=== PATIENT | female | born 2005 | race African-American/Black ===

== ENCOUNTER 2025-05-21 10:44 | Emergency (ER) | payer MEDICAID ==
[~2025-05-21] VITALS: Ht 172.7 cm; Wt 121.0 kg
[2025-05-21 10:48] VITALS: O2SAT 100
[2025-05-21 10:55] VITALS: BP 144/78; PULSE 85; RESP 16; TEMP 37.1; O2SAT 100
[2025-05-21 12:28] VITALS: TEMP 98.7
[2025-05-21] MEDS: ACETAMINOPHEN 325MG TABLET PO ONE (12:28)
[2025-05-21 13:19] LABS: HCG SCREEN NEGATIVE
== END 2025-05-21 13:55 | disposition home or self-care (01) ==
LOC: ER 10:45
DX: D16.9 Benign neoplasm of bone and articular cartilage, unspecified (principal); Z90.89 Acquired absence of other organs
CPT/HCPCS: 73562; 84703; 99284

== ENCOUNTER 2025-09-20 18:22 | Emergency (ER) | payer MEDICAID ==
[~2025-09-20] VITALS: Ht 172.7 cm; Wt 105.0 kg
[2025-09-20 18:37] VITALS: O2SAT 100
[2025-09-20 18:56] LABS: CLARITY URINE CLEAR (CLEAR); COLOR URINE YELLOW (YELLOW); GLUCOSE URINE NEGATIVE (NEGATIVE); KETONES URINE NEGATIVE (NEGATIVE); LEUKOCYTE ESTERASE URINE NEGATIVE (NEGATIVE); NITRITE URINE NEGATIVE (NEGATIVE); OCCULT BLOOD URINE NEGATIVE (NEGATIVE); PH URINE 6.0 (4.5-8.0); PROTEIN URINE NEGATIVE (NEGATIVE); SPECIFIC GRAVITY URINE 1.027 (1.005-1.030); UROBILINOGEN URINE 0.2 E.U./dL (0.2-1.0)
[2025-09-20 20:08] LABS: BASOPHILS % 0.6 % (0.0-2.0); EOSINOPHILS % 0.5 % (0.0-5.0); HEMATOCRIT. 37.5 % (36.0-48.0); HEMOGLOBIN. 11.6 g/dL (12.0-16.0); LYMPHOCYTES % 23.8 % (20.0-50.0); MEAN PLATELET VOLUME 8.4 fl (7.4-10.4); MONOCYTES % 4.5 % (2.0-8.0); NEUTROPHILS % 70.6 % (40.0-76.0); PLATELET 312 x1000/uL (130-400); RED BLOOD CELL COUNT 4.86 mill/uL (4.2-5.4); RED CELL DISTRIBUTION WIDTH 15.4 % (11.6-14.6)
[2025-09-20 20:21] LABS: INR 1.0
[2025-09-20 20:25] LABS: CREATININE 1.1 mg/dL (0.6-1.0); UREA NITROGEN BLOOD 10 mg/dL (9-23)
[2025-09-20 20:44] LABS: B-HCG QUANTITATIVE 1 mIU/mL (<6)
[2025-09-20] MEDS ORDERED: KETO10TA2 MT (21:17)
[2025-09-20 21:44] VITALS: BP 139/66; PULSE 88; RESP 20; TEMP 36.9; O2SAT 99
== END 2025-09-20 21:57 | disposition home or self-care (01) ==
LOC: ER 18:22
DX: O03.9 Complete or unspecified spontaneous abortion without complication (principal); N83.209 Unspecified ovarian cyst, unspecified side; Z3A.09 9 weeks gestation of pregnancy; Z90.89 Acquired absence of other organs
CPT/HCPCS: 36415; 76830; 76856; 80048; 81003; 81025; 84702; 85025; 86850; 86900; 99284